=== PATIENT | female | born 1935 | race Caucasian/White ===

== ENCOUNTER → 2023-10-13 14:10 | Outpatient (CLI) | payer MEDICARE, SELFPAY ==
--- NOTE | ~2023-10-13 | DEXA_ITS ---
Bone Density Report Name: STEVEN JUAREZ Age: 88 Sex: Female Ethnicity: White Date of : 1935 Indication: postmenopausal; screening for osteoporosis; height loss; Referring Provider: Reena, Michelle Munoz Study: Bone densitometry was performed. Exam Date: October 13, 2023 Accession number: [id number] Bone Density: Region BMD T-score Z-score Classification AP Spine (L1-L4) 0.837 -1.9 1.0 Osteopenia Femoral Neck (Left) 0.575 -2.5 0.1 Osteoporosis Total Hip (Left) 0.713 -1.9 0.5 Osteopenia Femoral Neck (Right) 0.570 -2.5 0.0 Osteoporosis Total Hip (Right) 0.686 -2.1 0.2 Osteopenia Total Hip Mean 0.700 -2.0 0.4 Osteopenia World Health Organization criteria for BMD impression classify patients as: Normal (T-score at or above -1.0), Osteopenia (T-score between -1.0 and -2.5), or Osteoporosis (T-score at or below -2.5). 10-year Fracture Risk: FRAX not reported because: Some T-score for Spine Total or Hip Total or Femoral Neck at or below -2.5 Treated for osteoporosis Clinical Information Provided by Patient: Is being treated for osteoporosis Has used the following medications: Fosamax (i.e. alendronate), Vitamin D, Calcium Patient maximum height was 63 Menopause Age: 59 Drinks caffeinated beverages Onset of menses at age 16 Number of children 3 Impression: The patient has osteoporosis, based on the Left Femoral Neck T-score. Discussion: It is important to ask patients whether they are taking their medications and to encourage continued and appropriate compliance with their osteoporosis therapies to reduce fracture risk. It is also important to review their risk factors and encourage appropriate calcium and vitamin D intakes, exercise, fall prevention and other lifestyle measures. Follow-Up: Consider a repeat BMD and Vertebral Fracture Assessment (VFA) exam in 2 years or sooner if medically necessary, to reassess this patient's status. Reported by: BRITTANY on 10/13/2023 2:45:00 PM. Reviewed, dictated and finalized at location [facility]
== END ==
PROVIDERS: PCP Nurse Practitioner Family; Visit Provider Nurse Practitioner Family
DX: M81.0 Age-related osteoporosis without current pathological fracture (principal); Z78.0 Asymptomatic menopausal state; M85.88 Other specified disorders of bone density and structure, other site; M85.852 Other specified disorders of bone density and structure, left thigh; M85.851 Other specified disorders of bone density and structure, right thigh
CPT/HCPCS: 77080

== ENCOUNTER 2024-08-05 11:03 | Outpatient (CLI) | payer MEDICARE, SELFPAY ==
--- NOTE | ~2024-08-05 | US_ITS ---
EXAMINATION: US renal BI DATE: 08/05/2024 12:48 INDICATION: Renal cysts TECHNIQUE: Multiple ultrasound grayscale images of the kidneys were obtained. COMPARISON: None. FINDINGS: The right kidney measures 7.9 x 4.3 x 6.4 cm. The left kidney measures 11.2 x 5.2 x 4.8 cm. The kidne ys demonstrate normal echogenicity. There are large bilateral anechoic renal cysts measuring up to 7. 8 cm on the left and 6.8 cm and 3.5 similar at the upper pole of the right kidney. There is suggestio n of possible thin internal septations versus artifact on some of the cine images of the right kidney . There is no hydronephrosis in either kidney. No stones identified. The bladder is normal with bila teral ureteral jets visualized on color Doppler. IMPRESSION: 1. Large bilateral renal cysts, compatible of which on the right may be mildly complex with thin int ernal septation versus artifact evident on some of the cine imaging. Correlate with reported prior ou tside imaging and if there is concern for solid component would consider further evaluation with pre and postcontrast MRI or CT as clinically needed. Reviewed, dictated and finalized at location B. IMPRESSION: 1. Large bilateral renal cysts, compatible of which on the right may be mildly complex with thin internal septation versus artifact evident on some of the ci ne imaging. Correlate with reported prior outside imaging and if there is zenobia rn for solid component would consider further evaluation with pre and postcontr ast MRI or CT as clinically needed.
== END 2024-08-05 11:04 | disposition home or self-care (01) ==
PROVIDERS: PCP Family Medicine; Visit Provider Internal Medicine Nephrology
DX: N28.1 Cyst of kidney, acquired (principal)
CPT/HCPCS: 76775

== ENCOUNTER 2024-11-01 14:49 | Outpatient (CLI) | payer MEDICARE, SELFPAY ==
--- NOTE | ~2024-11-01 | MR_ITS ---
EXAMINATION: MR abdomen wo/w con DATE: 11/01/2024 15:42 INDICATION: Complex cystic renal lesion on prior ultrasound. TECHNIQUE: Magnetic resonance imaging (MRI) of the abdomen was performed without and with 13 mL Multi rocael intravenous contrast. Sequences included coronal T2-weighted SS-FSE, coronal and axial FS 2D-F IESTA, axial STIR FSE, axial T2-weighted SS-FSE, axial T2-weighted FS SS-FSE, axial diffusion-weighte d SE, axial dual-echo T1-weighted FSPGR, and axial and coronal T1-weighted LAVA. Postcontrast axial T 1-weighted LAVA images were obtained in a time course. Postcontrast coronal T1-weighted LAVA images w ere obtained. COMPARISON: Renal ultrasound dated 08/05/2024 FINDINGS: Borderline heart size. No pericardial or pleural effusion. Airspace opacity lingula which could repre sent atelectasis or pneumonia. There are few scattered T2 hyperintense nonenhancing hepatic cysts the largest at the dome of the liver measuring 1.6 cm. Gallbladder, spleen and bilateral adrenal glands are normal. There are multiloculated cystic lesions in the pancreas which appear contiguous with the main pancreatic duct. The largest at the head of the pancreas measures up to 6.6 x 4.4 x 4.0 cm with individual components measuring up to 4 cm. 2.1 x 1.8 cm multiloculated cystic lesion at the body the pancreas and 3.0 x 2.0 cm multiloculated cystic lesion at the tail of the pancreas. No evident solid nodular enhancing component to the cystic pancreatic lesions. Large lateral renal cysts which appear s simple measuring 6.4 cm maximal diameter at the left kidney and mildly complex measuring 8.4 x 6.6 cm in the right kidney with several <2 mm thick uniform linear internal septations without evident en hancement of the septa or cyst wall and without nodular components consistent with a Bosniak 2F lesio n. Visualized portions of bowels are unremarkable with no obstruction. No pathologically enlarged abd ominal lymphadenopathy. Mild thoracic and moderate to severe lower lumbar predominant spondylosis. IMPRESSION: 1. 8.4 cm Bosniak 2F cystic lesion at the right kidney. Recommend 6 month follow-up pre and postcontr ast MRI. 2. 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 The differential diagnosis would also include pseudocyst, mucinous cystic neoplasm (MCN), and the less common serous cystadenoma and neuroendocrine tumor. Correlate for history of pancreatitis. 3. Consolidation at the lingula which could represent atelectasis or pneumonia. 4. Borderline heart size. Reviewed, dictated and finalized at location A. PROFESSIONAL IMPRESSION: 1. 8.4 cm Bosniak 2F cystic lesion at the right kidney. Recommend 6 month follo w-up pre and postcontrast MRI. 2. A few multiloculated cystic pancreatic lesions which appears contiguous with the main pancreatic duct most suggestive of a side branch intraductal papillar y mucinous neoplasm (IPMN). The differential diagnosis would also include pseud ocyst, mucinous cystic neoplasm (MCN), and the less common serous cystadenoma a nd neuroendocrine tumor. Correlate for history of pancreatitis. 3. Consolidation at the lingula which could represent atelectasis or pneumonia. 4. Borderline heart size.
== END 2024-11-01 14:50 | disposition home or self-care (01) ==
LOC: MICIMG 14:49
PROVIDERS: PCP Internal Medicine Nephrology; Visit Provider Internal Medicine Nephrology
DX: N28.1 Cyst of kidney, acquired (principal); K86.9 Disease of pancreas, unspecified; J84.09 Other alveolar and parieto-alveolar conditions; Q24.9 Congenital malformation of heart, unspecified
CPT/HCPCS: 74183; A9577